=== PATIENT | male | born 1950 | race Caucasian/White ===

== ENCOUNTER 2017-01-31 14:44 | Emergency (ER) | payer OTHER ==
[2017-01-31] MEDS ORDERED: Adacel Vial IM ONE ×2 (15:08→15:31)
[2017-01-31] MEDS ORDERED: Phenergan 25 MG INJ IM ONE (15:09)
[2017-01-31] MEDS ORDERED: Hydromorphone 1 mg/ml Ampule IM ONE (15:09)
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
[2017-01-31] MEDS ORDERED: Hydromorphone 1 mg/ml Ampule ONE (15:31)
[2017-01-31] MEDS ORDERED: Phenergan 25 MG INJ ONE (15:31)
[2017-01-31 16:07] VITALS: BP 165/94; PULSE 80
[2017-01-31 16:14] VITALS: O2SAT 97
[2017-02-01] MEDS ORDERED: BACIGUENT 30 GM TP ONE (15:45)
== END 2017-01-31 16:32 | disposition home or self-care (01) ==
LOC: ED 14:44
DX: T21.22XA Burn of second degree of abdominal wall, initial encounter (principal); T24.112A Burn of first degree of left thigh, initial encounter; X06.2XXA Exposure to ignition of other clothing and apparel, initial encounter
CPT/HCPCS: 80307; 90715; 96372; 99284; J1170; J2550; A9270-GY